=== PATIENT | male | born 1960 | race Caucasian/White ===

== ENCOUNTER 2018-06-02 15:36 | Emergency (ER) | payer BC, OTHER ==
[2018-06-02] MEDS ORDERED: Sodium Chloride 0.9% 2.5 ML Syringe FLUSH PRN (16:33)
[2018-06-02] MEDS ORDERED: Sodium Chloride 0.9% 10 ML Syringe FLUSH PRN (16:33)
[2018-06-02] MEDS ORDERED: Sodium Chloride 0.9% 1,000 ML IV ONE (16:33)
--- NOTE | 2018-06-02 16:51 | EDM.PDOC ---
<Brian Paredes Z - Last Filed: 06/02/18 18:01> ED HPI GENERAL MEDICAL PROBLEM - General Chief Complaint: Neurological Problem Stated Complaint: DIZZY Time Seen by Provider: 06/02/18 16:20 Source of Information: Reports: Patient History Limitations: Reports: No Limitations - History of Present Illness INITIAL COMMENTS - FREE TEXT/NARRATIVE: HISTORY AND PHYSICAL: History of present illness: This is a 57-year-old male who is presenting today with a 2 day history of lightheadedness/fatigue. Patient states that the symptoms started 2 days prior while he was doing some work around the house, he had an episode of lightheadedness stated that he was dizzy but not to the point where he required support, or to the point where he felt like he was going to faint. He denied any episodes of blacking out. Patient states that the other associated symptom was some fuzziness/blurring of vision, and he states that his believes that he is slurring his speech, however when interviewing the patient there is no obvious signs of slurring of his speech. Patient states that he does have a history of atrial fibrillation for which she is taking metoprolol, he is not on any blood thinner he is not on aspirin. He takes no other medication aside from multivitamins. Patient states that he did have a diagnosis of prediabetes a couple years back but has not been evaluated since then. He is a pack and a half day smoker for greater than 20 years. Patient does admit that he is having some mild shortness of breath on exertion and a cough with mild sputum production but denies any episodes of wheezing, chills. Patient also denies any history of headaches, chest pain, neurological deficits. Review of systems: As per history of present illness and below otherwise all systems reviewed and negative. Past medical history: As per history of present illness and as reviewed below otherwise noncontributory. Surgical history: As per history of present illness and as reviewed below otherwise noncontributory. Social history: No reported history of drug or alcohol abuse. Family history: As per history of present illness and as reviewed below otherwise noncontributory. Physical exam: HEENT: Atraumatic, normocephalic, pupils reactive, on extraocular muscle movement and accommodation which the patient was able to do adequately he did have some discomfort, negative for conjunctival pallor or scleral icterus, mucous membranes moist, throat clear, neck supple, nontender, trachea midline. Lungs: Bilateral end expiratory wheezing in all lung bowen. Heart: S1S2, regular, negative for clicks, rubs, or JVD. Abdomen: Soft, nondistended, nontender. There is a large umbilical herniation chronic in nature, Negative for masses or hepatosplenomegaly. Negative for costovertebral tenderness. Pelvis: Stable nontender. Genitourinary: Deferred. Rectal: Deferred. Extremities: Atraumatic, negative for cords or calf pain. Neurovascular unremarkable. Neuro: Awake, alert, oriented. Cranial nerves II through XII unremarkable. Cerebellum unremarkable. Motor and sensory unremarkable throughout. Exam nonfocal. Diagnostics: CBC, CMP, urinalysis, INR, sedimentation rate, hemoglobin A1c, TSH Orthostatic vitals EKG Chest x-ray Therapeutics: IV normal saline 1 L bolus Impression: This is a 57-year-old male that is presenting with lightheadedness/fatigue with some fogginess and blurring vision without associated symptoms of neurological deficit or headaches, patient does have a history of borderline diabetes. Plan: Patient's laboratory evaluations come back within normal limits, his hemoglobin A1c is elevated at 6.4 which does put him borderline type 2 diabetes, his EKG did not show any atrial fibrillation, his chest x-ray did not show any acute abnormality. Patient is feeling better after getting the IV fluid bolus. The likely diagnosis for this patient's symptoms is dehydration secondary to borderline type 2 diabetes. Patient to be discharged home with a follow-up with the residency clinic for further outpatient evaluation. Definitive disposition and diagnosis as appropriate pending reevaluation and review of above. - Related Data Allergies Allergy/AdvReac Type Severity Reaction Status Date / Time Penicillins Allergy Other Verified 06/02/18 15:41 Home Meds: Home Meds Metoprolol Succinate 50 mg PO DAILY 06/02/18 [History] Past Medical History Cardiovascular History: Reports: Other (See Below) Other Cardiovascular History: asymmetric septal hypertrophy - Infectious Disease History Infectious Disease History: Reports: Chicken Pox Social & Family History - Tobacco Use Smoking Status *Q: Current Every Day Smoker Years of Tobacco use: 20 Packs/Tins Daily: 0.8 - Alcohol Use Days Per Week of Alcohol Use: 7 Number of Drinks Per Day: 2 Total Drinks Per Week: 14 - Recreational Drug Use Recreational Drug Use: No ED ROS GENERAL - Review of Systems Review Of Systems: ROS reveals no pertinent complaints other than HPI. ED EXAM, NEURO - Physical Exam Exam: See Below Course - Vital Signs Last Recorded V/S: Last Vital Signs Temp 97.1 F 06/02/18 15:42 Pulse 89 06/02/18 15:42 Resp 16 06/02/18 15:42 BP 130/90 06/02/18 15:42 Pulse Ox 96 06/02/18 15:42 - Orders/Labs/Meds Orders: Active Orders 24 hr Category Date Time Status Cardiac Monitoring [RC] . DIRECTED Care 06/02/18 16:27 Active EKG 12 Lead [EKG Documentation Completion] [RC] STAT Care 06/02/18 16:02 Active Chest 2V [CR] Stat Exams 06/02/18 16:39 Taken UA W/MICROSCOPIC [URIN] Stat Lab 06/02/18 17:00 Ordered Sodium Chloride 0.9% [Saline Flush] Med 06/02/18 16:33 Active 10 ml FLUSH ASDIRECTED PRN Sodium Chloride 0.9% [Saline Flush] Med 06/02/18 16:33 Active 2.5 ml FLUSH ASDIRECTED PRN Medication Orders Sodium Chloride (Saline Flush) 2.5 ml FLUSH ASDIRECTED PRN PRN Reason: Keep Vein Open Last Admin: 06/02/18 16:36 Dose: 2.5 ml Sodium Chloride (Saline Flush) 10 ml FLUSH ASDIRECTED PRN PRN Reason: Keep Vein Open Last Admin: 06/02/18 16:36 Dose: 10 ml Labs: Laboratory Tests 06/02/18 06/02/18 06/02/18 Range/Units 15:35 15:35 15:35 WBC 9.98 (4.0-11.0) K/uL RBC 5.03 (4.50-5.90) M/uL Hgb 16.1 (13.0-17.0) g/dL Hct 46.4 (38.0-50.0) % MCV 92.2 (80.0-98.0) fL MCH 32.0 (27.0-32.0) pg MCHC 34.7 (31.0-37.0) g/dL RDW Std Deviation 49.5 (28.0-62.0) fl RDW Coeff of Bianca 15 (11.0-15.0) % Plt Count 141 L (150-400) K/uL MPV 11.80 (7.40-12.00) fL Neut % (Auto) 81.6 H (48.0-80.0) % Lymph % (Auto) 10.5 L (16.0-40.0) % Bibb % (Auto) 6.0 (0.0-15.0) % Eos % (Auto) 1.6 (0.0-7.0) % Baso % (Auto) 0.3 (0.0-1.5) % Neut # (Auto) 8.1 H (1.4-5.7) K/uL Lymph # (Auto) 1.1 (0.6-2.4) K/uL Bibb # (Auto) 0.6 (0.0-0.8) K/uL Eos # (Auto) 0.2 (0.0-0.7) K/uL Baso # (Auto) 0.0 (0.0-0.1) K/uL Nucleated RBC % 0.0 /100WBC Nucleated RBCs # 0 K/uL ESR (0-19) mm/hr INR 1.01 Sodium 139 (136-148) mmol/L Potassium 4.2 (3.5-5.1) mmol/L Chloride 104 (98-107) mmol/L Carbon Dioxide 27.9 (21.0-32.0) mmol/L BUN 15 (7.0-18.0) mg/dL Creatinine 0.9 (0.8-1.3) mg/dL Est Cr Clr Drug Dosing 107.82 mL/min Estimated GFR (MDRD) > 60.0 ml/min Glucose 105 (74-106) mg/dL Hemoglobin A1c (4.5-6.2) % Calcium 9.2 (8.5-10.1) mg/dL Total Bilirubin 0.7 (0.2-1.0) mg/dL AST 18 (15-37) IU/L ALT 25 (14-63) IU/L Alkaline Phosphatase 85 (46-116) U/L Total Protein 7.4 (6.4-8.2) g/dL Albumin 3.9 (3.4-5.0) g/dL Globulin 3.5 (2.0-3.5) g/dL Albumin/Globulin Ratio 1.1 L (1.3-2.8) Triglycerides 157 (0-200) mg/dL Cholesterol 174 (50-200) mg/dL LDL Cholesterol, Calc 109 (60-180) mg/dL VLDL Cholesterol 31 (5-55) mg/dL HDL Cholesterol 34 L (40-60) mg/dL Cholesterol/HDL Ratio 5.1 (3.3-6.0) TSH 3rd Generation 1.17 (0.36-3.74) uIU/mL Urine Color Urine Appearance Urine pH (5.0-8.0) Ur Specific Lowndes (1.001-1.035) Urine Protein (NEGATIVE) mg/dL Urine Glucose (UA) (NEGATIVE) mg/dL Urine Ketones (NEGATIVE) mg/dL Urine Occult Blood (NEGATIVE) Urine Nitrite (NEGATIVE) Urine Bilirubin (NEGATIVE) Urine Urobilinogen (<2.0) EU/dL Ur Leukocyte Esterase (NEGATIVE) Urine RBC (0-2/HPF) Urine WBC (0-5/HPF) Ur Epithelial Cells (NONE-FEW) Urine Bacteria (NEGATIVE) 06/02/18 06/02/18 06/02/18 Range/Units 15:35 15:35 17:00 WBC (4.0-11.0) K/uL RBC (4.50-5.90) M/uL Hgb (13.0-17.0) g/dL Hct (38.0-50.0) % MCV (80.0-98.0) fL MCH (27.0-32.0) pg MCHC (31.0-37.0) g/dL RDW Std Deviation (28.0-62.0) fl RDW Coeff of Bianca (11.0-15.0) % Plt Count (150-400) K/uL MPV (7.40-12.00) fL Neut % (Auto) (48.0-80.0) % Lymph % (Auto) (16.0-40.0) % Bibb % (Auto) (0.0-15.0) % Eos % (Auto) (0.0-7.0) % Baso % (Auto) (0.0-1.5) % Neut # (Auto) (1.4-5.7) K/uL Lymph # (Auto) (0.6-2.4) K/uL Bibb # (Auto) (0.0-0.8) K/uL Eos # (Auto) (0.0-0.7) K/uL Baso # (Auto) (0.0-0.1) K/uL Nucleated RBC % /100WBC Nucleated RBCs # K/uL ESR 1 (0-19) mm/hr INR Sodium (136-148) mmol/L Potassium (3.5-5.1) mmol/L Chloride (98-107) mmol/L Carbon Dioxide (21.0-32.0) mmol/L BUN (7.0-18.0) mg/dL Creatinine (0.8-1.3) mg/dL Est Cr Clr Drug Dosing mL/min Estimated GFR (MDRD) ml/min Glucose (74-106) mg/dL Hemoglobin A1c 6.4 H (4.5-6.2) % Calcium (8.5-10.1) mg/dL Total Bilirubin (0.2-1.0) mg/dL AST (15-37) IU/L ALT (14-63) IU/L Alkaline Phosphatase (46-116) U/L Total Protein (6.4-8.2) g/dL Albumin (3.4-5.0) g/dL Globulin (2.0-3.5) g/dL Albumin/Globulin Ratio (1.3-2.8) Triglycerides (0-200) mg/dL Cholesterol (50-200) mg/dL LDL Cholesterol, Calc (60-180) mg/dL VLDL Cholesterol (5-55) mg/dL HDL Cholesterol (40-60) mg/dL Cholesterol/HDL Ratio (3.3-6.0) TSH 3rd Generation (0.36-3.74) uIU/mL Urine Color YELLOW Urine Appearance CLEAR Urine pH 7.0 (5.0-8.0) Ur Specific [place] 1.010 (1.001-1.035) Urine Protein NEGATIVE (NEGATIVE) mg/dL Urine Glucose (UA) NEGATIVE (NEGATIVE) mg/dL Urine Ketones NEGATIVE (NEGATIVE) mg/dL Urine Occult Blood NEGATIVE (NEGATIVE) Urine Nitrite NEGATIVE (NEGATIVE) Urine Bilirubin NEGATIVE (NEGATIVE) Urine Urobilinogen 0.2 (<2.0) EU/dL Ur Leukocyte Esterase NEGATIVE (NEGATIVE) Urine RBC 0-1 (0-2/HPF) Urine WBC 0-2 (0-5/HPF) Ur Epithelial Cells FEW (NONE-FEW) Urine Bacteria FEW (NEGATIVE) Meds: Medications Generic Name Dose Route Start Last Admin Trade Name Freq PRN Reason Stop Dose Admin Sodium Chloride 2.5 ml 06/02/18 16:33 06/02/18 16:36 Saline Flush FLUSH 2.5 ml ASDIRECTED PRN Administration Keep Vein Open Sodium Chloride 10 ml 06/02/18 16:33 06/02/18 16:36 Saline Flush FLUSH 10 ml ASDIRECTED PRN Administration Keep Vein Open Discontinued Medications Generic Name Dose Route Start Last Admin Trade Name Freq PRN Reason Stop Dose Admin Sodium Chloride 1,000 mls @ 999 mls/hr 06/02/18 16:33 06/02/18 16:35 Normal Saline IV 06/02/18 17:33 999 mls/hr STAT ONE Administration Departure - Departure Time of Disposition: 18:20 Disposition: Home, Self-Care 01 Condition: Good Clinical Impression: Diabetes mellitus - Discharge Information Instructions: Type 2 Diabetes Mellitus, Diagnosis, Adult, Dehydration, Adult, [id number] Referrals: PCP,Fermin [Primary Care Provider] - Brian Paredes MD [Emergency Provider] - Forms: ED Department Discharge Additional Instructions: The lightheadedness that you are experiencing likely is associated with dehydration more than likely due to the borderline diabetes diagnosis that you have. Your labs were all within normal limits aside from the elevated hemoglobin A1c, your chest x-ray did not show any acute pathology. Given that you feel better after the IV fluids you are safe to be discharged home with follow up with Dr. Ann/[facility] residency clinic. If you experience any acute neurological deficit, or worsening of your symptoms we recommend that you return to the ER for further evaluation. The following information is given to patients seen in the emergency department who are being discharged to home. This information is to outline your options for follow-up care. We provide all patients seen in our emergency department with a follow-up referral. The need for follow-up, as well as the timing and circumstances, are variable depending upon the specifics of your emergency department visit. If you don't have a primary care physician on staff, we will provide you with a referral. We always advise you to contact your personal physician following an emergency department visit to inform them of the circumstance of the visit and for follow-up with them and/or the need for any referrals to a consulting specialist. The emergency department will also refer you to a specialist when appropriate. This referral assures that you have the opportunity for follow-up care with a specialist. All of these measure are taken in an effort to provide you with optimal care, which includes your follow-up. Under all circumstances we always encourage you to contact your private physician who remains a resource for coordinating your care. When calling for follow-up care, please make the office aware that this follow-up is from your recent emergency room visit. If for any reason you are refused follow-up, please contact the [facility] Emergency Department at and asked to speak to the emergency department charge nurse. <Heike Richardson - Last Filed: 06/02/18 18:18> ED HPI GENERAL MEDICAL PROBLEM - History of Present Illness INITIAL COMMENTS - FREE TEXT/NARRATIVE: I evaluated patient and agree with a history physical and workup above. She improved and will be following with Dr. Paredes in his clinic.
[2018-06-02 16:59] LABS: CHLORIDE,CL 104 mmol/L (98-107); SODIUM,NA 139 mmol/L (136-148)
--- NOTE | 2018-06-03 09:24 | CR ---
EXAM DATE: 06/02/18 PATIENT'S AGE: 57 Patient: KENDELL AUSTIN Facility: [place], [place] Site . Site : [id number] Study: XRay Chest [id number]/17/2018 5:05:28 PM Ordering Physician: Lena Anna Final Report: INDICATION: dizziness, sob, wheezing COMPARISON: None available. FINDINGS: PA and lateral views of the chest demonstrate adequate inflation of the lungs. There is mild bibasilar patchy opacities, likely representing atelectasis. There is no acute airspace disease. No pneumothorax. Heart size is at the upper limits of normal. There are no acute osseous findings. IMPRESSION: Mild bibasilar patchy opacities, likely representing atelectasis. No definite acute airspace disease. Dictated by Adithya Celis MD @ 06/02/2018 5:34:23 PM Dictated by: Adithya Celis MD @ 06/02/2018 17:34:32 (Electronic Signature) Report Signed by Proxy. [facility]ITALChadwick
== END 2018-06-02 18:26 | disposition home or self-care (01) ==
LOC: MW.ED 15:36
DX: E11.9 Type 2 diabetes mellitus without complications (principal); F17.210 Nicotine dependence, cigarettes, uncomplicated; Z79.899 Other long term (current) drug therapy; Z88.0 Allergy status to penicillin
CPT/HCPCS: 36415; 71046; 80053; 80061; 81001; 83036; 84443; 85025; 85610; 85652; 93005; 96360; 96361; 99284; J7040; 99283